=== PATIENT | male | born 1975 | race Caucasian/White ===

== ENCOUNTER 2016-08-27 05:30 | Day surgery (SDC) | payer OTHER ==
[~2016-08-27] VITALS: Ht 188 cm; Wt 103.2 kg
[~2016-08-27 05:30] MED LIST: ADVIL200 MG PO; FLOMAX0.4 MG PO; PERCOCET 5/31 TABLET PO; ZOFRAN ODT4 MG PO
[2016-08-27 05:47] VITALS: BP 118/68
[2016-08-27] MEDS ORDERED: PERCOCET 5/31 TABLET PO (08:48)
[2016-08-27 10:47] VITALS: BP 133/72
[2016-08-27 11:46] VITALS: BP 139/72
[2016-08-27 12:30] VITALS: BP 108/65
== END 2016-08-27 12:41 | disposition home or self-care (01) ==
LOC: SDC 05:30
PROC: 0YQ60ZZ Repair Left Inguinal Region, Open Approach (ICD-10-PCS; principal; 2016-08-27)
DX: K40.90 Unilateral inguinal hernia, without obstruction or gangrene, not specified as recurrent (principal)
CPT/HCPCS: C1781; J0330; J0690; J1170; J1885; J2250; J2405; J3010